=== PATIENT | male | born 1945 | race Caucasian/White ===

== ENCOUNTER → 2019-12-30 | Outpatient (CLI) | payer MEDICARE ==
[~2019-12-30] MED LIST: AMLO-211 PO; LOSA50TA14 PO; MULT-717 PO; [UNRECOGNIZED DRUG - OTHER] PO
[2019-12-30 11:40] LABS: ALANINE AMINOTRANSFERASE 23 U/L (12-78); ALBUMIN 3.9 g/dL (3.4-5.0); ANION GAP 8 mmol/L (5-15); CALCIUM 9.1 mg/dL (8.5-10.1); CHLORIDE 105 mmol/L (98-107); CREATININE 1.08 mg/dL (0.7-1.3)
[2019-12-30 11:42] LABS: ALKALINE PHOSPHATASE 46 U/L (45-117); BILIRUBIN,TOTAL 0.4 mg/dL (0.2-1.0); TOTAL PROTEIN 7.6 g/dL (6.4-8.2)
== END | disposition home or self-care (01) ==
LOC: STAR 09:29
PROVIDERS: ATTEND Orthopaedic Surgery
DX: Z01.812 Encounter for preprocedural laboratory examination (principal); Z20.828 Contact with and (suspected) exposure to other viral communicable diseases; M12.872 Other specific arthropathies, not elsewhere classified, left ankle and foot; R00.1 Bradycardia, unspecified
CPT/HCPCS: 36415; 80053; 87635; 93005